=== PATIENT | male | born 1950 | race Caucasian/White ===

== ENCOUNTER → 2016-12-05 | Outpatient (CLI) | payer OTHER ==
[~2016-12-05] MED LIST: ADVAIR 250/501 DISK IH; AEROECLIPSE1 EACH MC; CEFTIN500 MG PO; CHERATUSSIN AC473 ML PO; COQ-10100 MG PO; FENOFIBRATE160 M1 PO; FINASTERIDE5 M1 PO; FLONASE16 G1 BOTH NARES; FLOVENT 22120 INHALA IH; LEVAQUIN750 MG PO; LIPITOR40 MG PO; METOPROLOL TART25 MG PO; MUCINEX600 MG PO; Medrol Dosepak PO; NORCO 5/3251 TABLET PO; PHENERGAN-CODE120 ML PO; PLAVIX75 MG PO; PREDNISONE20 MG PO; PREDNISONE50 MG PO; PRILOSEC40 MG PO; PROAIR HFA8.5 GM IH; PROSCAR5 MG PO; PROVENTIL,2.5 MG/3 M IH; ROBITUSSIN AC,T10 ML PO; SIMVASTATIN40 M1 PO; SINGULAIR10 MG PO; TESSALON PERLE100 MG PO; ULTRAM50 MG PO; VITAMIN D-32000 UNIT PO; VITAMIN D31000 UNIT PO; ZITHROMAX Z-PA250 MG PO; [UNRECOGNIZED DRUG - OTHER] BOTH NARES
== END | disposition home or self-care (01) ==
LOC: NUC 11-27 11:00
DX: M19.072 Primary osteoarthritis, left ankle and foot (principal); M19.071 Primary osteoarthritis, right ankle and foot; M19.042 Primary osteoarthritis, left hand; M19.041 Primary osteoarthritis, right hand; M47.897 Other spondylosis, lumbosacral region; R93.7 Abnormal findings on diagnostic imaging of other parts of musculoskeletal system
CPT/HCPCS: 78306; A9503